=== PATIENT | female | born 1970 | race Caucasian/White ===

== ENCOUNTER 2025-06-03 06:45 | Day surgery (SDC) | payer OTHER ==
[~2025-06-03] VITALS: Ht 162.6 cm; Wt 89.0 kg
[2025-06-03] MEDS ORDERED: SODIUM CHLORIDE 0.9% 1,000 ML ONE (07:11)
[2025-06-03] MEDS ORDERED: SODIUM TETRADECYL SULFATE 3% 60 MG/2 ML VIAL IVP ONE (07:31)
[2025-06-03] MEDS ORDERED: NALOXONE HCL 0.4 MG/ML VIAL ONE (07:31)
[2025-06-03] MEDS ORDERED: FLUMAZENIL 0.1 MG/ML 5 ML VIAL IVP ONE (07:31)
[2025-06-03] MEDS ORDERED: ATROPINE SULFATE 0.1 MG/ML 10 ML SYRINGE IVP ONE (07:32)
[2025-06-03] MEDS ORDERED: EPINEPHrine 1:10,000 [1 MG/10 ML] SYRINGE ONE (07:32)
[2025-06-03] MEDS ORDERED: FentaNYL CITRATE PF 100 MCG/2 ML VIAL ONE (07:32)
[2025-06-03] MEDS ORDERED: MIDAZOLAM HCL 2 MG/2 ML VIAL ONE (07:35)
[2025-06-03 09:10] VITALS: PULSE 55; RESP 16; O2SAT 99
[2025-06-03] MEDS: SODIUM CHLORIDE 0.9% 1,000 ML IV ONE (09:53)
[2025-06-03] MEDS ORDERED: SERT-162 PO (11:17)
[2025-06-03] MEDS ORDERED: SEMA0.253 SQ (11:17)
[2025-06-03] MEDS ORDERED: ATOR10TA PO (11:17)
[2025-06-03] MEDS ORDERED: CHOL25TA4 PO (11:17)
[2025-06-03] MEDS ORDERED: SERT-158 PO (11:17)
[2025-06-03] MEDS ORDERED: PRAZ2 PO (11:17)
[2025-06-03] MEDS ORDERED: LOSA-381 PO (11:17)
[2025-06-03] MEDS ORDERED: HYDR-3831 PO (11:17)
[2025-06-03] MEDS ORDERED: ASPI-1450 PO (11:17)
[2025-06-03] MEDS ORDERED: BENZOCAINE 20% 50 MCG/SPRAY 57 GM ONE (12:00)
[2025-06-03] MEDS ORDERED: LIDOCAINE 4% 50 ML SOLUTION ONE (12:00)
[2025-06-03] MEDS ORDERED: LIDOCAINE 2% 11 ML JELLY ONE (12:00)
[2025-06-03] MEDS ORDERED: ALBUTEROL SULFATE 2.5 MG/0.5 ML NEB SOLUTION NEB ONE (12:00)
== END 2025-06-03 12:45 | disposition home or self-care (01) ==
LOC: SURGERY 06:45
PROVIDERS: ATTEND Internal Medicine Critical Care Medicine
DX: J38.4 Edema of larynx (principal); B37.0 Candidal stomatitis; R05.3 Chronic cough; R06.2 Wheezing; R04.2 Hemoptysis; R91.8 Other nonspecific abnormal finding of lung field; K76.0 Fatty (change of) liver, not elsewhere classified; Z90.49 Acquired absence of other specified parts of digestive tract; Z90.710 Acquired absence of both cervix and uterus; Z98.51 Tubal ligation status; Z98.890 Other specified postprocedural states; Z80.9 Family history of malignant neoplasm, unspecified
CPT/HCPCS: 31623; 87206; 87101; 87220; 87070; 31624; 71045; 87015; J3010; J2250; J2919; J7030; 88108; J0169; J0461; J1200; J2312; J3490; J7613; Z7610